=== PATIENT | male | born 1975 | race Caucasian/White ===

== ENCOUNTER 2019-02-16 19:21 | Emergency (ER) | payer SELFPAY ==
[~2019-02-16] VITALS: Ht 170.2 cm; Wt 93.0 kg
[2019-02-16 19:30] VITALS: BP 145/71
--- NOTE | 2019-02-16 19:38 | NUR ---
BIBS. C/O "HAVING SHORTNESS OF BREATH FOR ABOUT X1 YEAR" SATTING 95% ON RA. -SOB NOTED. AOX4. AMBULATORY W.STEADY GAIT. AT BEDSIDE FOR JAMES.
[2019-02-16] MEDS ORDERED: IPRATROPIUM NEB FS 0.5 MG/2.5 ML AMPUL.NEB ONE (20:00)
[2019-02-16] MEDS ORDERED: ALBUTEROL FS 2.5 MG/3 ML VIAL.NEB NEB ONE (20:00)
[2019-02-16] MEDS ORDERED: IPRATROPIUM NEB FS 0.5 MG/2.5 ML AMPUL.NEB NEB ONE (20:00)
[2019-02-16] MEDS ORDERED: ALBUTEROL FS 2.5 MG/3 ML VIAL.NEB ONE (20:00)
== END 2019-02-16 20:26 | disposition home or self-care (01) ==
LOC: ER 19:24
DX: R06.02 Shortness of breath (principal)